=== PATIENT | male | born 1935 | race Caucasian/White ===

== ENCOUNTER → 2016-02-17 | Outpatient (CLI) | payer OTHER ==
[~2016-02-17] MED LIST: ACET-1311 PO; ASPI81TA28 PO; ATOR10TA88 PO; CIPR-255 PO; CMD4 PO; ESOM20CA PO; FINA5TAB PO; OXYC-57 PO; POTA1080 PO; TAMS0.4C38 PO; WARF6TAB5 PO
== END | disposition home or self-care (01) ==
LOC: C.LABSPEC 18:13
PROVIDERS: ATTEND Urology
DX: N20.0 Calculus of kidney (principal); N40.1 Benign prostatic hyperplasia with lower urinary tract symptoms; C67.9 Malignant neoplasm of bladder, unspecified

== ENCOUNTER → 2016-04-19 | Outpatient (CLI) | payer OTHER ==
--- NOTE | 2016-04-19 11:51 | DIAGNOSTIC IMAGING REPORT ---
[facility] CLINICAL HISTORY: N20.0 [id number] nephrocalcinosis COMPARISON STUDY: 09/12/2015 FINDINGS: Bilateral renal calcifications essentially unchanged in the prior study. No new or interval findings. Bowel pattern is nonobstructive. Several pre-existing pelvic vascular calcifications. IMPRESSION: Stable bilateral nephrocalcinosis. Nonobstructive bowel pattern. Electronically signed by: Malik Miranda M.D. 04/19/2016 11:49 AM Dictated Date/Time: 04/19/2016 11:48 AM
== END | disposition home or self-care (01) ==
LOC: C.LAB 11:04
PROVIDERS: ATTEND Urology
DX: N20.0 Calculus of kidney (principal); C67.9 Malignant neoplasm of bladder, unspecified; N40.1 Benign prostatic hyperplasia with lower urinary tract symptoms

== ENCOUNTER → 2016-04-20 | Outpatient (CLI) | payer OTHER ==
[2016-04-20 16:50] LABS: BASO % 0.2 %; BASO ABS # 0.01 K/uL (0-0.2); COMPLETE YES; EOS % 0.9 %; HEMATOCRIT 42.8 % (42-52); IG% 0.2 %; LYMPH % 25.7 %; LYMPH ABS # 1.38 K/uL (1.2-3.4); MEAN CELL VOLUME 89.2 fL (80-100); MEAN CORPUSCULAR HEMOGLOBIN 31.3 pg (25-34); MEAN PLATELET VOLUME 10.3 fL (7.4-10.4); PLATELET COUNT 137 K/uL (130-400); WHITE BLOOD COUNT 5.37 K/uL (4.8-10.8)
[2016-04-20 17:18] LABS: BLOOD UREA NITROGEN 16 mg/dl (7-18); BUN/CREATININE RATIO 17.7 (10-20); CALCIUM 9.1 mg/dl (8.5-10.1); CARBON DIOXIDE 27 mmol/L (21-32); CHLORIDE 106 mmol/L (98-107); CREATININE 0.91 mg/dl (0.60-1.40); GLUCOSE 105 mg/dl (70-99); POTASSIUM 4.3 mmol/L (3.5-5.1); SODIUM 141 mmol/L (136-145)
== END | disposition home or self-care (01) ==
LOC: C.LAB 16:21
PROVIDERS: ATTEND Urology
DX: R31.0 Gross hematuria (principal)

== ENCOUNTER 2016-05-06 07:24 | Day surgery (SDC) | payer OTHER ==
[2016-04-22 12:48] VITALS: BMI 28.0
[~2016-05-06] VITALS: Ht 180.3 cm; Wt 91.0 kg
[~2016-05-06 07:24] MED LIST changes: -ACET-1311 PO; -CIPR-255 PO; +CIPROFLOXACIN / D5W 400 MG IV SCH; +LACTATED RINGER'S 1000ML IV SCH; -OXYC-57 PO; -WARF6TAB5 PO
[2016-05-06] MEDS ORDERED: MIDAZOLAM HCL 1 MG/ML 2ML VIAL ONE (07:50)
[2016-05-06 08:04] VITALS: BP 147/86; PULSE 50; TEMP 36.5; O2SAT 96; Ht 180.3 cm; Wt 91.0 kg
[2016-05-06 08:43] LABS: INR 1.1 (0.9-1.1); PARTIAL THROMBOPLASTIN RATIO 1.1; PROTHROMBIN TIME (PATIENT) 12.1 SECONDS (9.0-12.0)
[2016-05-06] MEDS ORDERED: LIDOCAINE HCL 2% 2 ML VIAL (20MG/ML) ONE (08:51)
[2016-05-06] MEDS ORDERED: PROPOFOL IV EMULSION 10 MG/ML 20 ML VIAL IV ONE (08:51)
[2016-05-06] MEDS ORDERED: FENTANYL CITRATE INJ 50 MCG/1 ML 2 ML VIAL ONE (08:51)
--- NOTE | 2016-05-06 09:24 | History & Physical Bridge Note ---
H&P Re-Evaluation Bridge Note: I have examined the patient, reviewed the History & Physical and in the interval since the performance of the History & Physical I have noted the following changes of clinical significance: No changes noted
[2016-05-06] MEDS ORDERED: GLYCOPYRROLATE INJ 0.2 MG/ML VIAL ONE (09:52)
[2016-05-06] MEDS ORDERED: ONDANSETRON INJ 2 MG/ML 2 ML VIAL ONE (09:52)
[2016-05-06] MEDS ORDERED: DEXAMETHASONE SOD INJ 4 MG/ML VIAL ONE (09:52)
[2016-05-06] MEDS ORDERED: BELLADONNA/OPIUM SUPP 60 MG SUPP PR ONE ×2 (10:04→10:32)
[2016-05-06] MEDS ORDERED: FENTANYL CITRATE INJ 50 MCG/1 ML 2 ML VIAL IV PRN (10:15)
[2016-05-06] MEDS ORDERED: MITOMYCIN FOR INJ 40 MG in SYRINGE 40 ML IR SCH (10:15)
[2016-05-06] MEDS ORDERED: ATROPINE SULFATE 0.1 MG/ML 5ML SYR IV PRN (10:15)
[2016-05-06] MEDS ORDERED: LABETALOL HCL IV 5 MG/ML 20ML IV PRN (10:15)
[2016-05-06] MEDS ORDERED: ONDANSETRON INJ 2 MG/ML 2 ML VIAL IV PRN (10:15)
--- NOTE | 2016-05-06 10:58 | [facility] Post Operative Brief Note ---
Immediate Operative Summary Operative Date May 06, 2016. Pre-Operative Diagnosis Bladder Cancer Post-Operative Diagnosis Bladder Cancer Procedure(s) Performed Cystoscopy, Bladder Biopsies and Prostatic Biopsy with Fulgeration and Instillation of Mitomycin C Surgeon Dr. Anmol Augustin Corporate Development Officer Surgeon(s) None Estimated Blood Loss 50ml Findings several scattered bladder tumors erythema in prostatic urethra bulbar stricture dilated with 17 ,21 portuguese scope Specimens A. Dome of Bladder Biopsy B. Right Posterior Lateral Bladder Wall Biopsy C. Anterior Wall Bladder Biopsy D. Bladder Neck Biopsy E. Prostatic Urethra Biopsy Drains urrutia for mitomycin
--- NOTE | 2016-05-06 11:02 | Discharge Instructions ---
Discharge Instructions Date of Service May 06, 2016. Visit Reason for Visit: Bladder Anterior Wall Papillary Changes Discharge Discharge Diagnosis / Problem: bladder cancer Discharge Goals Goal(s): Increase independence, Improve disease control Activity Recommendations Activity Limitations: per Instructions/Follow-up section (light activity for 4 waaks) Anesthesia . Post Anesthesia Instructions: If you have had General Anesthesia or IV Sedation: * Do not drive today. * Resume driving when surgeon permits. * Do not make important decisions or sign legal documents today. * Call surgeon for: 1. Temperature elevations greater than 101 degrees F. 2. Uncontrollable pain. 3. Excessive bleeding. 4. Persistent nausea and vomiting. 5. Medication intolerance (nausea, vomiting or rash). * For nausea and vomiting use only clear liquids such as: tea, soda, bouillon until nausea subsides, then gradually increase diet as tolerated. * If you have any concerns or questions, call your surgeon's office. If physician is unavailable and it is an emergency, call 911 or go to the nearest emergency room. . Instructions / Follow-Up Instructions / Follow-Up start coumadin when urine free of blood Diet Recommendations Recommended Home Diet: resume previous diet Procedures Procedures Performed: Cystoscopy, Bladder Biopsies and Prostatic Biopsy with Fulgeration and Instillation of Mitomycin C Pending Studies Studies pending at discharge: no Medical Emergencies . Who to Call and When: Medical Emergencies: If at any time you feel your situation is an emergency, please call 911 immediately. . Non-Emergent Contact Non-Emergency issues call your: Urologist . . "Provider Documentation" section prepared by Anmol Augustin.
--- NOTE | 2016-05-06 11:21 | Anesthesiology Progress Note ---
Anesthesia Post Op Note Date & Time May 06, 2016 at 11:21 Vital Signs Pain Intensity: 0 Vital Signs Past 12 Hours Date Time Temp Pulse Resp B/P Pulse Ox O2 Delivery O2 Flow Rate FiO2 05/06/16 11:20 36.2 56 16 108/74 91 Room Air 05/06/16 11:15 49 16 109/76 96 Room Air 05/06/16 11:05 52 16 111/74 95 Room Air 05/06/16 10:55 45 16 112/76 99 Mask 10 05/06/16 10:47 36.2 55 16 122/80 99 Mask 10 05/06/16 08:04 36.5 50 18 147/86 96 Room Air Notes Mental Status: alert / awake / arousable, participated in evaluation Pt Amnestic to Procedure: Yes Nausea / Vomiting: adequately controlled Pain: adequately controlled Airway Patency, RR, SpO2: stable & adequate BP & HR: stable & adequate Hydration State: stable & adequate Anesthetic Complications: no major complications apparent
[2016-05-06 11:33] VITALS: BP 112/72; PULSE 53; TEMP 36.4; O2SAT 98
--- NOTE | 2016-05-06 11:52 | OPERATIVE REPORT ---
DATE OF OPERATION: 05/06/2016 PROCEDURES PERFORMED: Cystoscopy, bladder biopsy and fulguration of prostatic urethral biopsy and instillation of mitomycin. SURGEON: Dr. Augustin. ANESTHESIA: General. INDICATIONS: The patient is a 80-year-old male with a history of bladder cancer who was previously seen and treated for bladder tumor and now has what appears to be a recurrence. He presents now for fulguration of bladder tumors and instillation of mitomycin. DESCRIPTION OF THE PROCEDURE: At the beginning of the procedure, the patient did have a bulbar urethral stricture which I could not pass with a 22-Andorran scope, so I had to use a 17-Andorran scope to dilate the stricture and a 21-Andorran scope to dilate it further and then following it with the 22-Andorran scope. Then the procedure was performed through a 22-Andorran cystoscope. The patient was taken to the operating room where general anesthesia was given. He was given preoperative antibiotics and had Venodyne stockings placed. He was placed in dorsal lithotomy position, prepped and draped in usual sterile fashion. There were areas of tumor in the bladder that were biopsied and fulgurated in the anterior wall, right lateral wall, posterior wall, bladder neck and prostatic urethra. These areas were fulgurated. These were all biopsied with cup biopsy forceps. There was no apparent bleeding except for in the prostatic urethra. At the end of the procedure, an 18-Andorran Chamberlain catheter was placed and irrigated clear. The patient was transferred to recovery room after 40 mg of mitomycin was placed in the bladder and clamped. We will plan to leave that in for 1 hour, remove and discharge the patient after the Chamberlain catheter is removed, to home. Please note the other finding was urethral stricture. I attest to the content of the Intraoperative Record and any orders documented therein. Any exceptio ns are noted below.
[2016-05-06 12:05] VITALS: BP 140/73; PULSE 61; O2SAT 93
[2016-05-06 12:35] VITALS: BP 139/74; PULSE 60; TEMP 36.3; O2SAT 94
== END 2016-05-06 12:55 | disposition home or self-care (01) ==
LOC: C.ACU 07:24
PROVIDERS: ATTEND Urology
DX: C67.9 Malignant neoplasm of bladder, unspecified (principal); N30.20 Other chronic cystitis without hematuria; N20.0 Calculus of kidney; N13.8 Other obstructive and reflux uropathy; R31.0 Gross hematuria; N34.1 Nonspecific urethritis; K21.9 Gastro-esophageal reflux disease without esophagitis; N40.1 Benign prostatic hyperplasia with lower urinary tract symptoms; Z98.890 Other specified postprocedural states; Z90.49 Acquired absence of other specified parts of digestive tract

== ENCOUNTER → 2016-09-07 | Outpatient (CLI) | payer OTHER ==
[~2016-09-07] MED LIST changes: -CIPROFLOXACIN / D5W 400 MG IV SCH; -LACTATED RINGER'S 1000ML IV SCH
== END | disposition home or self-care (01) ==
LOC: C.PATHSPEC 10:34
PROVIDERS: ATTEND Urology
DX: C67.9 Malignant neoplasm of bladder, unspecified (principal)

== ENCOUNTER → 2016-12-28 | Outpatient (CLI) | payer OTHER ==
[~2016-12-28] MED LIST changes: +ATOR10TA82 PO; -ATOR10TA88 PO
--- NOTE | 2016-12-28 12:10 | DIAGNOSTIC IMAGING REPORT ---
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 FINDINGS: The bowel gas pattern is unremarkable. There are no dilated loops of small bowel to suggest an obstruction. Calcifications in the deep pelvis likely represent phleboliths. These remain unchanged. Bilateral renal calculi remain unchanged. Dominant stone within the lower pole of the right kidney measures 4 mm. No ureteral calculi identified. No pneumoperitoneum or pneumatosis. IMPRESSION: Stable bilateral nephrolithiasis. No ureteral calculi. Electronically signed by: Khurram Jones M.D. 12/28/2016 12:08 PM Dictated Date/Time: 12/28/2016 12:07 PM
== END | disposition home or self-care (01) ==
LOC: C.RAD 11:24
PROVIDERS: ATTEND Urology
DX: C67.9 Malignant neoplasm of bladder, unspecified (principal); N20.0 Calculus of kidney

== ENCOUNTER → 2017-05-10 | Outpatient (CLI) | payer OTHER | END | disposition home or self-care (01) | LOC: C.LABSPEC 17:22 | PROVIDERS: ATTEND Urology | DX: C67.9 Malignant neoplasm of bladder, unspecified (principal) ==

== ENCOUNTER → 2017-09-13 | Outpatient (CLI) | payer OTHER ==
[~2017-09-13] MED LIST changes: +APIX1TAB3 PO
== END | disposition home or self-care (01) ==
LOC: C.PATHSPEC 17:45
PROVIDERS: ATTEND Urology
DX: C67.9 Malignant neoplasm of bladder, unspecified (principal); N20.0 Calculus of kidney; N40.1 Benign prostatic hyperplasia with lower urinary tract symptoms; R31.0 Gross hematuria

== ENCOUNTER → 2017-09-20 | Day surgery (SDC) | payer OTHER ==
[2017-09-14 11:43] VITALS: BMI 26.0
[~2017-09-20] VITALS: Ht 180.3 cm; Wt 85.5 kg
[~2017-09-20] MED LIST changes: +ATROPINE SO4 1 MG/ML 1ML VIAL ONE; -CMD4 PO; -ESOM20CA PO; +LIDOCAINE HCL 2% 2 ML VIAL (20MG/ML) ONE; +ONDANSETRON INJ 2 MG/ML 2 ML VIAL ONE; -POTA1080 PO; +PROPOFOL IV EMULSION 10 MG/ML 20 ML VIAL ONE; +SODIUM CHLORIDE 0.9% 500ML 500 ML IV ONE
[2017-09-20 11:50] VITALS: Ht 180.3 cm; Wt 85.5 kg
--- NOTE | 2017-09-20 12:07 | Endo History and Physical ---
History & Physical Date of Service: Sep 20, 2017. Chief Complaint: ABDOMINAL/EPIGASTRIC PAIN Referring Physician: DR ROSI RENEE History of Present Illness He is a 82-year-old male, who whom I had seen in the past (1 year ago) for change in bowel habits, but that has improved. Upon our 1st encounter He described scybalous type stools with intermittent small balls of stool, and inability to completely evacuate. This all started in June without warning. He self-discontinued his Zetia, started Citrucel and has been evaluated by Dr. Le with a colonoscopy in March, although I do not have that report, somewhat described some colitis in the sigmoid colon that was biopsied as normal, then he saw Dr. Jhony Stout in [place] who recommended Sitz markers which were normal as well as defecography which also was normal, performed at [place]. ~Repeat colonoscopy in 06/2016 revealed several small adenomatous polyps and his stool pattern is relatively normal. ~ He is on intermittent Miralax and is doing well. He was diagnosed with bladder cancer and is undergoing hormonal therapy for that. He has a new complaints of left sided chest pain that starts in the left side and radiates to the left upper quadrant and epigastric area. No dysphagia, no GERD, no reflux. He recently had a CT scan (non-contrast) that was normal. Normal Recent CBC. Past Surgical History Hx Cardiac Surgery: No Hx Internal Defibrillator: No Hx Pacemaker: No Hx Abdominal Surgery: Yes (APPY, HERNIA REPAIR) Hx of Implantable Prosthesis: No Hx Post-Op Nausea and Vomiting: No Hx Cancer Surgery: No Hx Thoracic Surgery: No Hx Orthopedic: Yes (RT KNEE SCOPE, RT ANKLE, RT FOOT) Hx Urinary Tract Surgery: Yes (CYSTO TURBT, CYSTOSCOPY) Family History None Social History Smoking Status: Former Smoker Hx Substance Use: No Hx Alcohol Use: Yes (OCC SOCIAL DRINK) Allergies Coded Allergies: Mills Pepper (Verified Allergy, Unknown, GI UPSET, 09/14/17) NO KNOWN DRUG ALLERGIES (Verified Allergy, Unknown, NKDA, 09/14/17) Current Medications Reported Home Medications Medications Dose Route/Sig Max Daily Dose Days Date Category Eliquis (Apixaban) 5 Mg Tab 5 Mg PO BID 09/14/17 Reported Proscar (Finasteride) 5 Mg Tab 5 Mg PO HS 04/22/16 Reported Flomax (Tamsulosin Hcl) 0.4 Mg Cap 0.4 Mg PO HS 10/22/15 Reported Lipitor (Atorvastatin Calcium) 10 Mg Tab 5 Mg PO HS 10/21/15 Reported Aspirin Ec (Aspirin) 81 Mg Tab 81 Mg PO HS 10/21/15 Reported Vital Signs Weight (Kilograms): 85.45 Height (Feet): 5 Height (Inches): 11 Date Time Temp Pulse Resp B/P (MAP) Pulse Ox O2 Delivery O2 Flow Rate FiO2 09/20/17 11:45 36.8 53 18 143/85 (104) 96 Room Air Physical Exam General Appearance: WD/WN, no apparent distress Respiratory/Chest: Respiratory effort: no dyspnea Auscultation: breath sounds normal Cardiovascular: Heart Auscultation: RRR, normal S1, normal S2 Abdomen: Bowel Sounds: normal Inspection & Palpation: soft, non-distended Assessment and Plan 82 yo presenting for EGD for luq/left sided chest pain
--- NOTE | 2017-09-20 13:13 | GI REPORT ---
Patient Name: Dylan Kruse Procedure Date: 09/20/2017 12:06 PM Date of : 1935 Admit Type: Outpatient Age: 82 Gender: Male Attending MD: Jonathan Gutierrez MD Procedure: Upper GI endoscopy Providers: Jonathan Gutierrez MD Referring MD: Kalyan Kasper Indications: Abdominal pain in the left upper quadrant Medicines: Monitored Anesthesia Care Complications: No immediate complications. Estimated blood loss: None. Estimated Blood Loss: Estimated blood loss: none. Procedure: Pre-Anesthesia Assessment: - Pre-Anesthesia Assessment: - Prior to the procedure, a History and Physical was performed, and patient medications, allergies and sensitivities were reviewed. The patient's tolerance of previous anesthesia was reviewed. Please see [employer] for complete details. - The risks and benefits of the procedure and the sedation options and risks were discussed with the patient. All questions were answered and informed consent was obtained. - Patient identification and proposed procedure were verified prior to the procedure by the physician and the nurse. The procedure was verified in the pre-procedure area in the procedure room. After obtaining informed consent, the endoscope was passed carefully and meticuously under direct vision and only advanced when the lumen was clearly identified, C02 insuflation was utilized throughout the entirity of the procedure. Throughout the procedure, the patient's blood pressure, pulse, and oxygen saturations were monitored continuously. After obtaining informed consent, the endoscope was passed under direct vision. Throughout the procedure, the patient's blood pressure, pulse, and oxygen saturations were monitored continuously. The scope was introduced through the mouth, and advanced to the second part of duodenum. The upper GI endoscopy was accomplished without difficulty. The patient tolerated the procedure well. Findings: A hiatal hernia was present. LA Grade A (one or more mucosal breaks less than 5 mm, not extending between tops of 2 mucosal folds) esophagitis with no bleeding was found. The entire examined stomach was normal. Biopsies were taken with a cold forceps for Helicobacter pylori testing. Localized mild inflammation characterized by erosions was found in the duodenal bulb. Impression: - Hiatal hernia. - LA Grade A reflux esophagitis. - Normal stomach. Biopsied. - Duodenitis. Recommendation: - Await pathology results. - Discharge patient to home (with escort). - Would restart nexium or other PPI in light of esophagitis as well as duodenal erosions, at least for two months time. Avoidance of all NSAIDs. Jonathan Gutierrez MD 09/20/2017 1:13:06 PM This report has been signed electronically. Note Initiated On: 09/20/2017 12:06 PM Number of Addenda: 0 I attest to the content of the Intraoperative Record and orders documented therein, exceptions below {[id number]}
--- NOTE | 2017-09-20 13:32 | Discharge Instructions ---
Endoscopy Patient Instructions Date / Procedure(s) Performed Sep 20, 2017. EGD Allergy Information Coded Allergies: Mills Pepper (Verified Allergy, Unknown, GI UPSET, 09/20/17) NO KNOWN DRUG ALLERGIES (Verified Allergy, Unknown, NKDA, 09/20/17) Discharge Date / Findings Sep 20, 2017. Findings: A hiatal hernia was present. LA Grade A (one or more mucosal breaks less than 5 mm, not extending between tops of 2 mucosal folds) esophagitis with no bleeding was found. The entire examined stomach was normal. Biopsies were taken with a cold forceps for Helicobacter pylori testing. Localized mild inflammation characterized by erosions was found in the duodenal bulb. Impression: - Hiatal hernia. - LA Grade A reflux esophagitis. - Normal stomach. Biopsied. - Duodenitis. Recommendation: - Await pathology results. - Discharge patient to home (with escort). - Would restart nexium or other PPI in light of esophagitis as well as duodenal erosions, at least for two months time. Avoidance of all NSAIDs -Resume blood thinners tomorrow. Medication Instructions Stopped Medication(s): ELIQUIS AND ASPIRIN LAST DOSE 09/16/17 Provider Instructions Activity Restrictions - No exercising or heavy lifting for 24 hours. - Do not drink alcohol the day of the procedure. - Do not drive a car or operate machinery until the day after the procedure. - Do not make any important decisions or sign important papers in 24 hours after the procedure. Following Day: - Return to full activity which may include returning to work/school. Diet Start your diet with liquids and light foods (jello, soup, juice, toast). Then eat your usual diet if not nauseated. Treatment For Common After Affects For mild abdominal pain, bloating, or excessive gas: - Rest - Eat lightly - Lie on right side Follow-Up Information Follow-up with DR ROSI RENEE as scheduled Anesthesia Information What You Should Know You have had a procedure that required some medicine to reduce anxiety and discomfort. This treatment is called moderate sedation. After receiving the treatment, you may be sleepy, but you will be able to breathe on your own. The effects of the treatment may last for several hours. Follow these instructions along with Activity/Diet recommendations noted above: * Do NOT do anything where dizziness or clumsiness would be dangerous. * Rest quietly at home today, then you can be up and about tomorrow. * Have a responsible person stay with you the rest of today. * You may have had an I.V. today. If so, you may take the dressing off later today. Recommendations Call your doctor if: * Trouble breathing * Continuous vomiting for more than 24 hours * Temperature above 101 degrees * Severe abdominal pain or bloating * Pain not relieved by pain medicine ordered * There is increased drainage or redness from any incision * A large amount of rectal bleeding greater than 2-3 tablespoons. (If you had a polyp/s removed or have hemorrhoids, a small amount of blood - from the rectum is to be expected.) * You have any unanswered questions or concerns. IN THE EVENT OF A SERIOUS EMERGENCY, GO TO THE NEAREST EMERGENCY ROOM Your discharge instructions were prepared by provider Jonathan Gutierrez. Patient Instructions Signature Page Dylan Kruse Patient (or Guardian) Signature/Date: I have read and understand the instructions given to me by my caregivers. Caregiver/RN/Doctor Signature/Date: The above-named patient and/or guardian has received patient instructions on this date. + Original Patient Signature Page (only) stays with chart. Please make copy for patient.
--- NOTE | 2017-09-20 13:34 | Anesthesiology Progress Note ---
Anesthesia Post Op Note Date & Time Sep 20, 2017 at 13:34 Vital Signs Pain Intensity: 0 Vital Signs Past 12 Hours Date Time Temp Pulse Resp B/P (MAP) Pulse Ox O2 Delivery O2 Flow Rate FiO2 09/20/17 13:18 80 16 110/75 (87) 96 Room Air 09/20/17 11:45 36.8 53 18 143/85 (104) 96 Room Air Notes Mental Status: alert / awake / arousable, participated in evaluation Pt Amnestic to Procedure: Yes Nausea / Vomiting: adequately controlled Pain: adequately controlled Airway Patency, RR, SpO2: stable & adequate BP & HR: stable & adequate Hydration State: stable & adequate Anesthetic Complications: no major complications apparent
[2017-09-20 13:45] VITALS: BP 126/88; PULSE 62; O2SAT 96
== END | disposition home or self-care (01) ==
LOC: C.GI 11:26
PROVIDERS: ATTEND Internal Medicine
DX: R10.12 Left upper quadrant pain (principal); K44.9 Diaphragmatic hernia without obstruction or gangrene; K21.0 Gastro-esophageal reflux disease with esophagitis; K29.80 Duodenitis without bleeding; I25.2 Old myocardial infarction; I25.10 Atherosclerotic heart disease of native coronary artery without angina pectoris; I48.91 Unspecified atrial fibrillation; N18.9 Chronic kidney disease, unspecified; Z87.891 Personal history of nicotine dependence; Z79.01 Long term (current) use of anticoagulants; Z79.82 Long term (current) use of aspirin; Z91.018 Allergy to other foods; Z79.899 Other long term (current) drug therapy; Z85.51 Personal history of malignant neoplasm of bladder